=== PATIENT | female | born 1970 | race Caucasian/White ===

== ENCOUNTER 2023-10-07 05:39 | Inpatient (IN) | payer OTHER, SELFPAY ==
[2023-10-07] VITALS (45 sets, daily range): BP systolic 74–187; BP diastolic 57–133; BMI 26.2; BMI 23.7; BMI 24.5
[2023-10-07 02:09] LABS: Glucose - Point of Care 125 mg/dl (70-99)
[2023-10-07] MEDS: ZYPREXA 10 MG IM (02:21)
[2023-10-07] MEDS: VERSED 2 MG IM (02:22)
[2023-10-07 02:44] LABS: % Basophils 0.4 % (0-2); % Immature Granulocytes 0.4 % (0-0.5); % Lymphocytes 14.2 % (20.5-51.1); % Monocytes 6.8 % (1.7-9.3); % Neutrophils 78.2 % (42.2-75.2); Absolute Basophils 0.1 10^3/uL (0-0.2); Absolute Immature Granulocytes 0.1 10^3/uL (0-0.05); Absolute Lymphocytes 2.7 10^3/uL (1.2-3.4); Absolute Monocytes 1.3 10^3/uL (0.1-0.6); Absolute Neutrophils 14.6 10^3/uL (1.4-6.5); Hematocrit 38.2 % (37.0-47.0); Mean Corp Hgb Conc. 36.6 g/dL (33.0-37.0); Mean Corpuscular Hgb 29.1 pg (27.0-31.0); Mean Corpuscular Volume 79.4 fL (81.0-99.0); Mean Platelet Volume 9.5 fL (7.4-10.4); Nucleated Red Blood Cells % 0 %; Platelet Count 421 10^3/uL (130-400); Red Blood Cell Count 4.81 10^6/uL (4.20-5.40); Red Cell Dist. Width 12.2 % (11.5-14.5); White Blood Cell Count 18.7 10^3/uL (4.8-10.8)
--- NOTE | 2023-10-07 02:57 | ED.GENMED ---
History of Present Illness
General
Chief Complaint: Head Injury
Source: patient
Exam Limitations: altered mental status
Time Seen by Provider: 10/07/23 02:05
Travel History
Have you had any contact with someone who has COVID-19?: Unable to Answer
Do you have any symptoms of coronavirus? Fever > 100 degrees, chills, cough, shortness of breath, sore throat, loss of taste or smell, muscle aches, or headache?: Unable to Answer
History of Present Illness
History of Present Illness:
53-year-old female brought in by EMS for [facility] with head injury. She is altered mental status. She had a head strike while in the correctional facility. There are conflicting reports. Initially we were told that
patient was striking her head repeatedly against the cellblock wall. Patient was in custody for approximately 5 hours so long-term history not known. Patient did receive 50 mg of diphenhydramine, 5 mg of haloperidol, and 2 mg of lorazepam after
head strike. Patient was very agitated upon arrival screaming. Blood sugar upon arrival was 125. Patient is very uncooperative. We immediately placed a c-collar on her as the extent of her trauma is unknown. She did have dried blood on her nose
and pupils were dilated. She is not cooperating and unable or unwilling to answer questions. She keeps screaming out incomprehensible words. She received olanzapine and Versed which did not seem to affect her condition. Patient then received
ketamine as she was still thrashing. She still had handcuffs in place and she was straining against them. She was given ketamine to try to prevent her from injuring herself.
Phy Exam
Physical Exam
Physical Exam:
Physical Exam
Vital signs and allergy list reviewed and agreed with.
GENERAL: Alert , in moderate apparent distress, screaming
EYE: pupils equal dilated, extraocular motions intact, no scleral icterus
NECK: Supple, no significant adenopathy. No masses. Trachea midline
ENT: Oropharynx has dried blood, nasopharynx has dried blood. No hemotympanum. Dentition appears intact though she is missing several teeth which appear chronic
CARDIAC: Regular rate and rhythm . No M/R/G
LUNGS: Clear breath sounds bilaterally, no acute respiratory distress, no wheezes/rales/rhonchi
ABDOMEN: Soft, without focal tenderness, no r/g, no cvat. Normal BSx4q
NEUROLOGICAL: Unable to obtain neurological exam at this time
SKIN: Warm and dry, tract dickerson of the arms
MUSCULOSKELETAL: No edema, well perfused. Moves all 4 extremities
PSYCH: No meaningful interaction
General Physical Exam
General Presentation: moderate distress
General age: appears older than age
General Skin: warm and dry
General Habitus: normal and poor hygiene
General Mental: angry, anxious, appears intoxicated and tearful
General Hydration: appears well hydrated
Course
Orders/Labs/Results
Orders:
Orders
10/07/23 02:05
CT Cervical Spine W/o Iv Contr Urgent
Comment:
Reason For Exam: trauma
CT Head W/o Iv Contrast Urgent
Comment:
Reason For Exam: trauma
Bedside Glucose- Treatment ONCE
Cardiac Monitoring- Treatment ONCE
10/07/23 02:07
Electrocardiogram (*1) Stat
Reason for Study: Other
Other Reason for Exam: overdose
EKG- Treatment ONCE
Test Result ONCE
10/07/23 02:10
Olanzapine [Zyprexa] 10 mg IM NOW STA
10/07/23 02:19
Midazolam HCl [Versed] 2 mg .ROUTE .STK-MED ONE
10/07/23 02:22
Midazolam HCl [Versed] 2 mg IM NOW STA
10/07/23 02:39
Acetaminophen Urgent
Alcohol Urgent
Complete Blood Count/With Diff Urgent
Comprehensive Metabolic Panel Urgent
Creatine Phosphokinase Urgent
Comment: ADD ON
Erythrocyte Sed Rate Urgent
Comment: ADD ON
HCG, Serum Qualitative Screen Urgent
Magnesium Urgent
Comment: ADD ON
Phosphorus Urgent
Comment: ADD ON
Salicylate Urgent
10/07/23 02:51
Ketamine Concentrate Injection [Ketamine HCl] 300 mg IM NOW STA
10/07/23 03:26
CT Chest/abd/pel Wo Iv Cont Urgent
Reason For Exam: ams, possible cavity stuffing
10/07/23 04:05
Fentanyl, Urine Urgent
PTT Urgent
Prothrombin Time Urgent
Urinalysis Reflex To Culture Urgent
Date Specimen was Collected: 10/07/23
Time Specimen was Collected: 04:04
Urine Drug Abuse Screen Urgent
Date Specimen was Collected: 10/07/23
Time Specimen was Collected: 04:04
Urine Microscopic Reflex Cult Urgent
Urine Culture Urgent
HARSHIL Source: U
Specimen Description:
Date Specimen was Collected: 10/07/23
Time Specimen was Collected: 04:04
10/07/23 05:14
Admit/Transfer Patient As Directed
Co-Sign Provider:
Level of Care: Inpatient admission
Assign to:: ICU
Physician / Group: Alexandro
Diagnosis: Opioid Withdrawal, Head Trauma
Reason for Hospitalization: Opioid Withdrawal, Head Trauma
Expected length of stay greater than two midnights?: Yes
ELOS- Estimated Length of Stay in days: 3
I certify the patient meets the requirements for IP care: Yes
10/07/23 05:25
Code Status As Directed
Resuscitation Status: Full Code
10/07/23 06:13
Lactic Acid Urgent
10/07/23 06:47
Acetaminophen [Tylenol/Feverall] 650 mg RECTAL Q4HPRN PRN
Dextrose 50%-Water [Dextrose 50% Syringe] 12.5 grams IV [id number] PRN
Glucagon [GlucaGen] 1 mg IM PRN PRN
Haloperidol Lactate [Haldol] 1 mg IV Q4HPRN PRN
HydrALAZINE [Apresoline] 5 mg IV Q6HPRN PRN
Lorazepam [Ativan] 2 mg IV Q2HPRN PRN
10/07/23 06:47
Consult Notification Routine
Specialty to Notify: Stapler Machine
Date consulting provider notified: 10/07/23
Time consulting provider notified: 08:44
Notified:: Provider
Consult Notification Routine
Specialty to Notify: Neurology
Date consulting provider notified: 10/07/23
Time consulting provider notified: 08:44
Notified:: Provider
Consult Notification Routine
Specialty to Notify: Psychiatry
Date consulting provider notified: 10/07/23
Time consulting provider notified: 08:44
Notified:: Provider
NEUROLOGY CONSULT Routine
Consulting Provider: Umberto Hammond
Was physician already notified: No
Reason for consult: AMS, Head injury
PSYCHIATRY CONSULT Routine
Consulting Provider: Stephanie Cedeno
Was physician already notified: No
Reason for consult: Methamphetamine Toxicity / Withdrawal, AMS
Activity As Directed
Activity Level: Bedrest
Bedside Glucose Monitoring As Directed
Frequency: AC&HS
Comment: Change to q6h if pt on TPN, tube feeding or not eating
EKG with chest pain [ECG as needed] As Directed
ECG as needed for:: Chest Pain
I/O [Intake/ Output] As Directed
Frequency: Per unit guidelines
Neurological Checks As Directed
Frequency: q4h
Pneumatic Compression Sleeves As Directed
Type: Knee high
Precautions As Directed
Type of Precautions: Seizure
Aspiration
Vital Signs As Directed
Frequency: Per unit guidelines
O2 Therapy [RESP] Routine
Titrate/Wean O2 to maintain O2 sat greater than (%): 94
Restraints - Violent As Directed
Restraint Type-: Locked-4 point/4 rails
Apply From (date): 10/07/23
Apply from (time): 05:24
Remove (date): 10/07/23
Remove (time): 09:24
DX Deep Vein Thrombosis Video Routine
10/07/23 07:30
Dextrose 5%/Water 1000 ml [D5w] 1,000 ml Sodium Bicarbonate 150 meq IV 125 mls/hr
Insulin Aspart Corrective Low [Novolog Flexpen-Low Resistance] See Protocol SC AC
10/07/23 08:00
Pantoprazole [Protonix IV] 40 mg IV DAILY
10/08/23 04:27
Glycohemoglobin (HgbA1c) IN AM
Magnesium IN AM
10/08/23 06:00
EKG [Electrocardiogram (*1)] IN AM
Reason for Study: Chest Pain
Abnormal Lab Results
10/07/23 10/07/23 10/07/23
02:07 02:39 04:05
WBC 18.7 H 10^3/uL
(4.8-10.8)
MCV 79.4 L fL
(81.0-99.0)
Plt Count 421 H 10^3/uL
(130-400)
Abs Immat Gran (auto) 0.1 H 10^3/uL
(0-0.05)
Absolute Neuts (auto) 14.6 H 10^3/uL
(1.4-6.5)
Absolute Monos (auto) 1.3 H 10^3/uL
(0.1-0.6)
Neutrophils % 78.2 H %
(42.2-75.2)
Lymphocytes % 14.2 L %
(20.5-51.1)
ESR 22 H mm/hour
(0-20)
APTT 20.1 L Sec
(23.4-35.0)
Carbon Dioxide 16 L mmol/L
(22-30)
BUN 18 H mg/dl
(7-17)
Glucose 163 H mg/dl
(70-99)
Calcium 10.5 H mg/dl
(8.4-10.2)
Total Bilirubin 1.8 H mg/dl
(0.2-1.3)
AST 59 H U/L
(14-36)
Alkaline Phosphatase 145 H U/L
(38-126)
Creatine Kinase 678 H U/L
(30-135)
Total Protein 9.3 H g/dl
(6.3-8.2)
Albumin 5.1 H g/dl
(3.5-5.0)
Urine Ketones 1+ A
(Negative)
Ur Occult Blood Reflex 1+ A
(Negative)
Leukocyte Esterase Rfl 1+ A
(Negative)
Urine RBC 3-6 A /HPF
(0-2)
Urine WBC (Reflex) 11-15 A /HPF
(0-5)
Urine Bacteria (Reflex) Moderate A
(Negative)
Urine Glucose 1+ A
(Negative)
Salicylates < 1.0 L mg/dl
(2.0-20.0)
Ur Buprenorphine Positive H
(Negative)
Urine Fentanyl Screen Positive H
(Negative)
Acetaminophen < 10 L ug/ml
(10-30)
Ur Amphetamines Screen Positive H
(Negative)
U Methamphetamines Scrn Positive H
(Negative)
U Benzodiazepines Scrn Positive H
(Negative)
POC Glucose 125 H mg/dl
(70-99)
10/07/23 02:39
10/07/23 02:39
Vital Signs
Initial and Last Documented VS:
Initial Vital Signs
Pulse Resp Pulse Ox
134 36 96
10/07/23 02:07 10/07/23 02:07 10/07/23 02:07
Last Documented Vital Signs
Temp Pulse Resp BP Pulse Ox
100.1 F 107 18 162/79 94
10/08/23 19:00 10/08/23 19:00 10/08/23 19:00 10/08/23 19:00 10/08/23 19:00
*Critical Care Note
Total Time (30-74mins, 75-104mins- exclusive of procedures): 55 (Critical care statement: A total of 55 minutes of critical care time was provided for this patient. This time is separate from time utilized to perform the aforementioned documented
procedures. Aggregate critical care time includes only time during which I was engaged in work directl)
Update Note
Update Note:
10/07/2023 0300 AM: When medics called in with report, I tried to defer them to a trauma center since patient had a head strike and mental status was not normal. The communicated was terminated prematurely and patient arrived here at our nontrauma
center.
CT HEAD WITHOUT CONTRAST
CT CERVICAL SPINE WITHOUT CONTRAST
CT CHEST WITHOUT CONTRAST
CT ABDOMEN PELVIS WITHOUT CONTRAST
COMPARISON: None
IMPRESSION:
CT HEAD:
No acute intracranial hemorrhage. No evidence of acute infarct.
No calvarial fracture.
Ventricles are normal without hydrocephalus.
There is scattered paranasal sinus mucosal thickening.
CT CERVICAL SPINE:
No acute fracture.
Straightening of the cervical spine. Mild anterolisthesis C3 on C4 that appears degenerative due to moderate to severe facet arthrosis in the upper cervical spine.
Moderate degenerative disc disease throughout the cervical spine without definite high-grade osseous canal stenosis.
Small left-sided internal laryngocele.
CT CHEST:
Study is limited due to motion artifact.
No traumatic injury in the chest.
Lungs are clear. No lung contusion or pneumothorax.
No rib fracture or thoracic spine fracture.
Soft tissue nodule inner right breast measuring 12 mm. Correlate with any mammogram. If none available, breast clinic referral recommended
CT ABDOMEN PELVIS:
Study is limited due to motion artifact.
There is no definite foreign body in the stomach, rectum, or vagina. However evaluation of the stomach is limited due to motion artifact.
No traumatic injury in the abdomen/pelvis.
Rotational anomaly of the right kidney. Prominence of the right ureter is noted with possible 2 mm stone in the right ureter on coronal image 44 although this may actually be and ovarian vein phlebolith if there is no corresponding flank pain.
Moderate stool in the colon without signs of obstruction or colitis. Normal appendix, partially obscured by motion artifact.
No free air or free fluid.
No definite lumbar spine or pelvic fracture.
10/07/2023 0448 AM: Patient resting comfortably, CT scan reviewed. Patient to be admitted for altered mental status.
ED Attending Note
-
Portions of this chart may have been created with voice recognition software.� Occasional wrong word or��sound alike� substitutions may have occurred due to the inherent limitations of voice recognition software.
Discharge Plan
Departure
Patient Disposition: Admit
Date of Disposition: 10/07/23
Time of Disposition: 04:54
Admit to: Telemetry
Presentation/result/management discussed w/ accepting MD/DO: Hospitalist
Discharge Problem:
Altered mental status, Head injury, Epistaxis due to trauma, Drug abuse, Health examination of prisoner
Interventions
Interventions:
*Risk Screen - Suicide Last Done: 10/07/23 02:07
*General Assessment Last Done: 10/07/23 02:07
*Neglect/Abuse Screening Last Done: 10/07/23 02:07
*Nursing Disposition Last Done: 10/07/23 06:42
ED- Neurological Assessment Last Done: 10/07/23 02:31
ED-Skin Assessment Last Done: 10/07/23 02:14
Discharge Date and Time
Discharge Date/Time: 10/07/23 06:42
[2023-10-07] MEDS: KETAMINE HCL 300 MG IM (03:02)
[2023-10-07 03:08] LABS: HCG, Serum Qualitative Screen Negative
[2023-10-07 03:24] LABS: ALT (SGPT) 32 U/L (0-35); AST (SGOT) 59 U/L (14-36); Acetaminophen < 10 ug/ml (10-30); Albumin 5.1 g/dl (3.5-5.0); Alcohol None Detected; Alkaline Phosphatase 145 U/L (38-126); Blood Urea Nitrogen 18 mg/dl (7-17); Calcium 10.5 mg/dl (8.4-10.2); Carbon Dioxide 16 mmol/L (22-30); Chloride 106 mmol/L (98-107); Estimated Creatinine Clearance 67 ml/min; Glucose 163 mg/dl (70-99); Potassium 4.3 mmol/L (3.5-5.1); Salicylate < 1.0 mg/dl (2.0-20.0); Sodium 140 mmol/L (135-145); Total Bilirubin 1.8 mg/dl (0.2-1.3); Total Protein 9.3 g/dl (6.3-8.2); eGFR > 60.00
[2023-10-07 04:30] LABS: Urine Albumin Trace (Neg - Trace); Urine Bilirubin Negative (Negative); Urine Character Clear (Clear); Urine Color Yellow; Urine Glucose 1+ (Negative); Urine Ketone 1+ (Negative); Urine Leukocyte 1+ (Negative); Urine Nitrite Negative (Negative); Urine Occult Blood 1+ (Negative); Urine Urobilinogen Negative (Neg - 1+)
[2023-10-07 04:40] LABS: INR 1.01; PT 13.3 Sec (11.4-14.6)
[2023-10-07 04:52] LABS: Urine Bacteria Moderate (Negative); Urine Hyaline Cast 0-2 /LPF (0-2); Urine Mucus Moderate; Urine Squamous Cell >30 /LPF (Few)
[2023-10-07 04:59] LABS: Amphetamines Positive (Negative); Barbiturates Negative (Negative); Benzodiazepines Positive (Negative); Buprenorphine Positive (Negative); Cocaine Negative (Negative); Marijuana Negative (Negative); Methadone Negative (Negative); Methamphetamines Positive (Negative); Opiates Negative (Negative); Phencyclidine Negative (Negative); Tricyclic Antidepressants Negative (Negative)
[2023-10-07 05:09] LABS: APTT 20.1 Sec (23.4-35.0)
[2023-10-07 05:22] LABS: Fentanyl, Urine Positive (Negative)
--- NOTE | 2023-10-07 05:31 | HPS.HSE ---
Family Physician
-
Family Physician: * NONE
Chief Complaint
-
Agitation
History of Present Illness
Patient is a 53y F with unknown PMH who presents to ED from nursing home for evaluation of altered mental status and reported head trauma. History is obtained from ED staff and nursing home staff at the bedside.
Patient mumbled at times and shouts out nonsensically, but does not answer questions or follow commands.
Patient was incarcerated on 10/06/23. Some time after incarceration, she was reportedly noted to become increasingly agitated. She was on medications at the nursing home consistent with opioid addiction. This evening, patient was witnessed to be
striking her own head against the wall. She received multiple sedating meds at the nursing home without significant improvement and was brought to our ED for further evaluation and treatment.
At the time of my examination, patient is in 4 point restraints and is intermittently agitated / thrashing with mumbled speech.
Medical History
Past Medical History
Past Medical History: Reports Other
Additional Past Medical History:
Unknown
Past Surgical History: Reports Other
Additional Past Surgical History:
Unknown
Social History
Unable to obtain full social history at this time due to: Patient Non-verbal
Family History
Family History: Unable to Obtain
Allergies / Home Medications
Allergies reflects when Allergies were last updated in [facility].
Home Medications with original date entered in [facility]
Allergy/Medication List:
Patient unable to confirm meds.
If medication reconciliation has not been performed, why?: Unresponsive
Review of Systems
-
Unable to obtain full review of systems at this time due to: Patient Non-verbal
Physical Exam
Vital Signs
Vital Signs
Pulse Resp BP Pulse Ox
127 20 187/110 97
10/07/23 04:45 10/07/23 04:45 10/07/23 04:30 10/07/23 04:15
Physical Exam
General: Other (53y F sedated and in 4-point restraints in the ED. Intermittent episodes of thrashing / agitation. Mumbled speech. Does not answer questions / follow commands.)
HEENT: Other (Poor dentition. Evidence of recent bleeding from the nose and mouth. No active bleeding. No visible mucosal / tongue lesions.)
Respiratory: Clear; No Wheezes, Rales or Rhonchi
Cardiac: S1/S2 and Tachycardia; No Murmur
GI: Soft, Non Tender, Non Distended and Normal Bowel Sounds
Musculoskeletal: No Clubbing, No Cyanosis and No Edema
Neuro: Other (Moving all 4 extremities spontaneously.)
Laboratory Results
-
10/07/23 02:39
10/07/23 02:39
Laboratory Results
PT 13.3 Sec (11.4-14.6) 10/07/23 04:05
INR 1.01 10/07/23 04:05
APTT 20.1 Sec (23.4-35.0) L 10/07/23 04:05
Total Bilirubin 1.8 mg/dl (0.2-1.3) H 10/07/23 02:39
AST 59 U/L (14-36) H 10/07/23 02:39
ALT 32 U/L (0-35) 10/07/23 02:39
Alkaline Phosphatase 145 U/L (38-126) H 10/07/23 02:39
Impression/Plan
-
A/P: Patient is a 53y F with unknown PMH who presents to ED from nursing home for evaluation of altered mental status and head trauma.
Altered Mental Status / Agitation
Acute TME
Anion Gap Metabolic Acidosis
Leukocytosis - Likely Stress Response
- Admit to ICU for further evaluation and treatment.
- UDS positive for amphetamines / methamphetamines (as well as BZDs and buprenorphine which she was receiving at the nursing home).
- No fentanyl or opioids noted.
- Presentation / exam consistent with methamphetamine toxicity.
- Continue management of agitation with aggressive BZDs +/- antipsychotic medications as needed.
- Maintain restraints for now, but would attempt to eliminate these as soon as able / when agitation is better controlled.
- IVF support with supplemental bicarb.
- BP control with hydralazine. Avoid beta-blockers acutely.
- Collections Curator evaluation.
- Psychiatry evaluation.
- Follow for clinical improvement.
Head Trauma - Witnessed
- Patient with hematoma over the R > L frontal areas.
- Bleeding from mouth / nose on arrival - no longer active.
- See ED record regarding circumstances of initial presentation.
- Imaging done here in the ED is without any evidence of intracranial bleeding, factures or other significant trauma.
- Agitation / altered mental status preceded (and was the cause of) the self-inflicted trauma.
- Monitor for any evident changes in neurologic status.
- Repeat CT later this AM to assess for any short interval changes.
- Neurology evaluation.
Hypertension
- Likely in large part secondary to amphetamine toxicity / agitation.
- Follow for improvement with adequate sedation.
- IV hydralazine PRN for very high BPs.
DVT Prophylaxis: SCDs
Code Status: Full
[2023-10-07] MEDS: HALDOL 1 MG IV (07:04)
[2023-10-07] MEDS: ATIVAN 2 MG IV (07:05)
[2023-10-07] MEDS: SODIUM BICARBONATE 1150 MEQ IV (08:07)
[2023-10-07] MEDS: PROTONIX IV 40 MG IV (08:08)
[2023-10-07] MEDS: NSS (PRESERVATIVE FREE) 10 ML IV (08:08)
[2023-10-07] MEDS: HALDOL 2 MG IV (08:25)
[2023-10-07] MEDS: PRECEDEX 100 IV ×2 (08:25→13:06)
[2023-10-07 08:49] LABS: Creatine Phosphokinase 678 U/L (30-135); Phosphorus 4.2 mg/dl (2.5-4.5)
[2023-10-07 11:11] LABS: Erythrocyte Sed Rate 22 mm/hour (0-20)
--- NOTE | 2023-10-07 11:11 | CON.INTV ---
Consultation
Consultation Request
Date/Time Consultation Requested: 10/07/2023
Date/Time Consultation Performed: 10/07/2023
Requesting Provider: Dr. Shrestha
Performing Provider: Dr. Juan Miguel Izquierdo
Reason for Consultation: Acute change in mental status/severe agitated delirium
Medical History
-
History of Present Illness:
53-year-old woman with unknown past medical history she was brought into the emergency room from the local [facility] for altered mental status. History obtained from records and staff as the patient is currently unable to provide any history.
Patient initially was incarcerated on 10/06/2023. She has been increasingly agitated. She was placed on some medications at the senior care for opiate addiction. Patient was observed for striking her head with the wall. She was given sedating
medication at the senior care without success. She was brought into the emergency room for evaluation.
Patient was found with altered mental status, combative, not following commands. Required multiple dose of antipsychotics and sedatives without success. Subsequently transferred to the critical care unit for further evaluation and care.
Continues to be intermittently agitated, not following commands, unable to provide history. Delirious. Currently on 4 point restraints.
Past Medical History
Past Medical History: Other (Unable to obtain)
Social History
Tobacco: Other (Unable to obtain due to agitation and poor mental status)
Family History
Family History: Unable to Obtain (Agitation, poor mental status)
Allergies / Home Medications
Allergies
Allergy/AdvReac Type Severity Reaction Status Date / Time
No Known Allergies Allergy Unverified 10/07/23 03:01
Home Medications
Medication Instructions Recorded Confirmed Last Taken Type
buprenorphine HCl 2 mg sublingual 2 mg sublingual DAILY 10/07/23 10/07/23 Unknown History
tablet
buprenorphine HCl 2 mg sublingual 4 mg sublingual DAILY 10/07/23 10/07/23 Unknown History
tablet
buprenorphine HCl 8 mg sublingual 8 mg sublingual DAILY 10/07/23 10/07/23 Unknown History
tablet
clonazepam 0.5 mg disintegrating 0.5 mg PO DAILY 10/07/23 10/07/23 Unknown History
tablet
clonazepam 1 mg tablet 1 mg PO BID 10/07/23 10/07/23 Unknown History
clonazepam 2 mg disintegrating 2 mg PO BID 10/07/23 10/07/23 Unknown History
tablet
clonidine HCl 0.1 mg tablet 0.1 mg PO BID 10/07/23 10/07/23 Unknown History
clonidine HCl 0.1 mg tablet 0.1 mg PO TID 10/07/23 10/07/23 Unknown History
diphenhydramine HCl 50 mg/mL 50 mg IM ONCE 10/07/23 10/07/23 10/07/23 History
injection syringe 0130
folic acid 1 mg tablet 1 mg PO DAILY 10/07/23 10/07/23 Unknown History
haloperidol lactate 5 mg/mL 5 mg ONCE 10/07/23 10/07/23 10/07/23 History
injection syringe 0130
loperamide 2 mg tablet 2 mg PO TID PRN DIARRHEA 10/07/23 10/07/23 Unknown History
lorazepam 2 mg tablet 2 mg PO ONCE 10/07/23 10/07/23 10/07/23 History
0130
magnesium oxide 400 mg PO DAILY 10/07/23 10/07/23 Unknown History
multivitamin 1 tab PO DAILY 10/07/23 10/07/23 Unknown History
ondansetron 4 mg disintegrating 4 mg PO Q8H PRN N/V 10/07/23 10/07/23 Unknown History
tablet
thiamine HCl (vitamin B1) 100 mg 100 mg PO DAILY 10/07/23 10/07/23 Unknown History
tablet (Vitamin B-1)
Review of Systems
-
Unable to Obtain full review of systems at this time due to: Other (Agitated, poor mental status)
Vitals / Labs / Diagnostic Testing
Vital Signs
Temp Pulse Resp BP Pulse Ox
98.6 F 77 15 84/67 97
10/07/23 07:30 10/07/23 10:43 10/07/23 10:43 10/07/23 10:43 10/07/23 10:46
Lab Data
10/07/23 02:39
10/07/23 02:39
Laboratory Results
10/07/23
04:05
PT 13.3
INR 1.01
APTT 20.1 L
Diagnostic Testing:
Physical Exam
-
HEENT: Normocephalic
Cardiovascular: S1/S2
Respiratory: Clear
GI: Soft and Non Distended
Neurology: Other (Intermittently agitated, combative, not following commands. Moving 4 extremities.)
Skin: Other (Multiple skin lesions noted.) and Other (Frontal bruising noted.)
Assessment
-
Agitated delirium: Toxic metabolic encephalopathy
Likely methamphetamine toxicity
UDS positive for amphetamines and methamphetamines
Positive for fentanyl as well
Positive for benzos (patient received in the emergency room)
Alcohol negative
Positive buprenorphine
Facial trauma: Self-inflicted
CT chest with no acute abnormality
Anion gap metabolic acidosis-likely due to agitation
CT abdomen pelvis/chest 10/07/2023: Lungs are mostly clear. Abdomen pelvis without acute abnormality
Leukocytosis: Possibly stress reaction-patient afebrile
Assessment and plan:
Critically ill with agitated delirium: Necessitating chemical restriction.
Has received multiple doses of benzodiazepines IV, Haldol IV without good response.
Continues to be combative on four-port restraints.
Precedex drip will be started, continue to monitor vital signs closely as well as mental status
Haldol IV 2 mg now were given as well.
Maintain aspiration precautions, Head of the bed elevation. NPO.
-
Continue Ativan as needed
Eventual psychiatry evaluation
-
If there is depressed mental status and unable to protect airway may need to proceed with intubation.
Currently coughing and yelling on occasion. Protecting airway.
-
Continue hemodynamic monitoring.
Follow electrolytes, bicarbonate drip has been given.
Repeat BMP later today. If acidosis better than will transition to half-normal with potassium.
Continue to monitor electrolytes daily
-
Follow leukocytosis, urinalysis is abnormal.
Unclear if is contaminant
Ceftriaxone started, if culture negative will consider discontinuation of antibiotics.
-
DVT prophylaxis with Lovenox
-
Case discussed with primary team
-
Critical care statement: A total of 31 minutes of critical care time was provided for this patient today. This includes management of unstable vital signs, evaluation of the patient at bedside, reviewing the patient's pertinent medical records
including ventilator settings, arterial blood gases, radiographs, microbiology, laboratory evaluations and discussion with primary team, critical care nursing, and respiratory therapy.
[2023-10-07] MEDS: ROCEPHIN 1000 MG IV (11:14)
[2023-10-07] MEDS: STERILE WATER FOR INJECTION 10 ML IV (11:15)
--- NOTE | 2023-10-07 11:15 | W.PN.HOSP.TC ---
Addendum entered and electronically signed by Gurdeep Shrestha MD 10/07/23 13:23:
Correction: Nonbillable note
Original Note:
Today's Communication/Plan
-
Monitor vital signs and see plan
Continue with Precedex
Restraints
Start ceftriaxone
Follow urine culture
Monitor leukocytosis
Assessment / Plan
Assessment / Plan
General: No acute distress, sedated, in restraints
HEENT: Other (Poor dentition.� Evidence of recent bleeding from the nose and mouth.� No active bleeding.)
Respiratory: Clear; No Wheezes, Rales or Rhonchi
Cardiac: S1/S2 and Tachycardia; No Murmur
GI: Soft, Non Tender, Non Distended and Normal Bowel Sounds
Musculoskeletal: No Clubbing, No Cyanosis and No Edema
Neuro:sedated
Altered Mental Status / Agitation
Acute TME
Anion Gap Metabolic Acidosis
Leukocytosis
nowin ICU; on precedex
�- UDS positive for amphetamines / methamphetamines (as well as BZDs and buprenorphine which she was receiving at the [facility] living).
�- Presentation / exam on admission consistent with methamphetamine toxicity.
cw restraints
�- IVF support with supplemental bicarb.
�- BP control with hydralazine.� Avoid beta-blockers acutely.
�- Hi Lo Driver following
�- Psychiatry evaluation.
�- Follow for clinical improvement.
Mild LFT elevation
Monitor
Suspect urinary tract infection
Urine culture pending
Start ceftriaxone
Head Trauma - Witnessed
�- Patient with hematoma over the R > L frontal areas.
�- Bleeding from mouth / nose on arrival - no longer active.
�- See ED record regarding circumstances of initial presentation.
�- Imaging done here in the ED is without any evidence of intracranial bleeding, factures or other significant trauma.
�- Agitation / altered mental status preceded (and was the cause of) the self-inflicted trauma.
�- Monitor for any evident changes in neurologic status.
�-Neurology following
�-CT cervical spine consistent with degenerative changes, no signs of fracture
CT chest/abdomen/pelvis, no radiopaque foreign body identified. 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 Post recent right gluteal intramuscular injection
Hypertension
�- Likely in large part secondary to amphetamine toxicity / agitation.
�- Follow for improvement with adequate sedation.
�- IV hydralazine PRN for very high BPs.
DVT Prophylaxis:� SCDs
Code Status:� Full
I spent a total of 52 minutes with the patient or on the floor. More than 50% of this time involved counseling and coordination of care.
Anticipated Discharge: > 48 hours
Subjective/Interval History
-
Date of Service: October 07, 2023
sedated
Objective Data
-
Labs:
Laboratory Results
10/07/23 10/07/23
02:39 04:05
WBC 18.7 H
Hgb 14.0
Hct 38.2
Plt Count 421 H
PT 13.3
INR 1.01
APTT 20.1 L
Sodium 140
Potassium 4.3
Chloride 106
Carbon Dioxide 16 L
BUN 18 H
Creatinine 1.0
Glucose 163 H
Calcium 10.5 H
Total Bilirubin 1.8 H
AST 59 H
ALT 32
Alkaline Phosphatase 145 H
Vital Signs:
Vital Signs
Temp Pulse Resp BP Pulse Ox
98.6 F 77 15 84/67 97
10/07/23 07:30 10/07/23 10:43 10/07/23 10:43 10/07/23 10:43 10/07/23 10:46
I&O
10/06/23 10/07/23 10/08/23
06:59 06:59 06:59
Intake Total 282.9 / 282.9
Output Total 500 / 500
Balance -217.1 / -217.1
--- NOTE | 2023-10-07 11:19 | W.PN.UPDATE ---
Update Note
Progress Note Update
this chart was reviewed and i spoke to nursing. consult could not be done as i was unable to arouse this patient at all to speak with me . will return in the am and try again. noted patient w long hx meth abuse. she has been sedated with a number
of agents including zyprexa haldol benadryl midazolam and is now on precedex and in restraints. hopefully she will be able to engage when the acute period of intoxication passes..
--- NOTE | 2023-10-07 11:41 | CON.NEURO4 ---
Addendum entered and electronically signed by Umberto Hammond MD 10/07/23 13:06:
Studies reviewed.
I have personally examined the patient. I reviewed and agree with the SKIP MINER's Note.
My addenda:
Not alert, no acute distress. Maintains eyes half-open.
Speech: moaning only
Follows no requests. No tremor.
Extra-ocular movements grossly intact.
Facial movements full and symmetric. Hearing intact to normal conversational volume.
Normal UE movements bilaterally.
Neck: full ROM.
Chest: no dyspnea
Heart: no JVD
Ext: (-) Clubbing, (-) Cyanosis, (-) Edema
IMPRESSIONS/RECOMMENDATIONS:
Abrupt onset of self- abuse and trauma
attempt to reduce sedation when possible
re-check CT head if no improvement in mentation 24 hours off of sedation
check blood work for additional etiologies
Will continue to follow as needed.
Original Note:
Documented by User: Jesenia Anguiano NP 10/07/23 12:08
Consultation - Neurology 4
-
CONSULTING PHYSICIAN: Umberto Hammond MD
REFERRING PHYSICIAN: Hospitalists/Dr. Mc
DICTATED BY: ADOLFO Paniagua
DATE/TIME OF REQUEST: 10/06/23
DATE/TIME OF CONSULTATION: 10/07/23
Reason for Consultation: AMS, head injury
History of Present Illness:
This is a 53-year-old female with a PMH of drug abuse who has presented to the hospital from [facility] with report of altered mental status and head injury. Patient was incarcerated yesterday (10/06/23). Five hours in to
her incarceration she became extremely agitated and started striking her head against a wall, prompting staff to administer IM Lorazepam, Benadryl, and Haldol which did not significantly improve her agitation, prompting them to bring her to the ER
for evaluation. CT head and cervical spine are negative for any acute findings. Urine drug screen +amphetamines, benzos, fentanyl, and buprenorphine. Patient is currently in the ICU on a Precedex drip with ongoing intermittent agitation/thrashing
and nonsensical mumbling. She is unable to provide any answers to questions.
Past Medical History: Unknown.
Surgical History: Unknown.
Family History: Unknown.
Social History: Methamphetamine abuse.
Allergies: No known allergies.
Home Medications: See below.
Review of Symptoms:
Per the HPI. I am unable to obtain a complete review of systems�because of patient's inability to provide history.
Physical Exam:
The patient is obtunded, restless, and restrained, afebrile, abdomen is nondistended, breathing is unlabored, skin is warm and dry, no edema.
Neurologic Examination:
The patient is sedated on IV Precedex and other IV push medication. She is obtunded, moans only. Doesn't follow any commands or respond to any questions. There is no aphasia or dysarthria. On cranial nerve assessment, pupils are 1 mm bilateral,
round and reactive to light and accommodation. JAYSON visual godfrey or EOMS, gaze is midline. There is no facial asymmetry at rest. JAYSON hearing. JAYSON tongue. Moves all extremities spontaneously, localizes BUE and withdraws BLE to pain. JAYSON drift. No
involuntary movement noted. Deep tendon reflexes are 2+ bilateral upper and lower extremities.Babinski is mildly positive on the right. JAYSON sensation, DBS, and coordination.
Lab Results: See below.
Neuro Imaging:
1. CT Head 10/07/23: No acute intracranial abnormality.
2. CT Cervical Spine 10/07/23: No acute fracture or malalignment cervical spine. Multilevel moderate to advanced degenerative changes as described.
Differentials for the patient's presentation include:
1. Acute agitation in the setting of substance withdraw and incarceration.
2. Patient on sedation.
3. No evidence of any head/neck trauma from hitting head.
4. Low concern for acute neurological condition leading to agitation.
Recommendations:
-Supportive care.
-If no improvement in mental status in the next several days consider MRI brain imaging.
-Urine culture pending.
-DVT prophylaxis.
Discussed patient care with: Dr. Hammond, nursing staff
Vital Signs and Labs
-
Vital Signs and Labs:
Vital Signs
Temp Pulse Resp BP Pulse Ox
98.6 F 77 15 84/67 97
10/07/23 11:59 10/07/23 10:43 10/07/23 10:43 10/07/23 10:43 10/07/23 10:46
Lab Results
10/07/23 02:39
PT 13.3 Sec (11.4-14.6) 10/07/23 04:05
INR 1.01 10/07/23 04:05
APTT 20.1 Sec (23.4-35.0) L 10/07/23 04:05
Sodium 140 mmol/L (135-145) 10/07/23 02:39
Potassium 4.3 mmol/L (3.5-5.1) 10/07/23 02:39
BUN 18 mg/dl (7-17) H 10/07/23 02:39
Glucose 163 mg/dl (70-99) H 10/07/23 02:39
Calcium 10.5 mg/dl (8.4-10.2) H 10/07/23 02:39
Phosphorus 4.2 mg/dl (2.5-4.5) 10/07/23 02:39
Vitamin B12 Cancelled 10/07/23 02:39
Ur Buprenorphine Positive (Negative) H 10/07/23 04:05
Medications
-
Active Medications
Generic Name Dose Route Start Last Admin
Trade Name Freq PRN Reason Stop Dose Admin
Acetaminophen 650 mg 10/07/23 06:47
Acetaminophen 650 Mg Rectal Suppository RECTAL 11/04/23 06:46
Q4HPRN PRN
mild pain/RODRIGUEZ/temp> 100.4F
Ceftriaxone Sodium 1,000 mg 10/07/23 10:00 10/07/23 11:14
Ceftriaxone 1000 Mg / 10 Ml Vial IV 1,000 mg
Q24H VARUN Administration
Dextrose 12.5 grams 10/07/23 06:47
Dextrose 50% (0.5 Grams/Ml) 50 Ml Syringe IV 11/04/23 06:46
[id number] PRN
hypoglycemia
Protocol
Enoxaparin Sodium 40 mg 10/07/23 18:00
Enoxaparin Sodium 40 Mg/0.4 Ml Syringe SC 11/04/23 17:59
QPM VARUN
Glucagon 1 mg 10/07/23 06:47
Glucagon 1 Mg Vial IM 11/04/23 06:46
PRN PRN
hypoglycemia
Protocol
Haloperidol Lactate 1 mg 10/07/23 06:47 10/07/23 07:04
Haloperidol 5 Mg/Ml 1 Ml Vial IV 11/04/23 06:46 1 mg
Q4HPRN PRN Administration
Agitation
Hydralazine HCl 5 mg 10/07/23 06:47
Hydralazine 20 Mg/Ml Vial IV 11/04/23 06:46
Q6HPRN PRN
SBP > 180
Sodium Bicarbonate 150 meq/ 1,150 mls @ 125 mls/hr 10/07/23 07:30 10/07/23 08:07
Dextrose IV 10/07/23 16:41 1,150 mls
.Q9H12M VARUN Administration
Dexmedetomidine HCl 400 mcg in 100 mls @ 0 mls/hr 10/07/23 08:30 10/07/23 08:25
Precedex IV 100 mls
PER PROTOCOL VARUN Administration
Protocol
Per Protocol
Insulin Aspart 0 units 10/07/23 12:00 10/07/23 11:52
Insulin Aspart Low Resistance 300 Units/3 Ml Pen.Injctr SC 11/04/23 11:59 Not Given
Q6 VARUN
Protocol
Lorazepam 2 mg 10/07/23 06:47 10/07/23 07:05
Lorazepam 2 Mg/Ml Vial IV 11/04/23 06:46 2 mg
Q2HPRN PRN Administration
Agitation
Pantoprazole Sodium 40 mg 10/07/23 08:00 10/07/23 08:08
Pantoprazole Sodium 40 Mg/10 Ml Vial IV 11/04/23 07:59 40 mg
DAILY VARUN Administration
Sodium Chloride 0 flush 10/07/23 07:00
Sodium Chloride 0.9% (Flush) Syringe IV 11/04/23 06:59
PER PROTOCOL VARUN
Sodium Chloride 1 ml 10/07/23 06:58
Nss (Pf) 10 Ml Vial For Ativan 2 Mg Dose IV 11/04/23 06:57
Q2HPRN PRN
IV LORAZEPAM DILUTION
Sodium Chloride 10 ml 10/07/23 08:00 10/07/23 08:08
Sodium Chloride 0.9% (Preservative Free) 10 Ml Vial IV 11/04/23 07:59 10 ml
DAILY VARUN Administration
Sterile Water 10 ml 10/07/23 10:00 10/07/23 11:15
Sterile Water For Injection 10 Ml Vial IV 11/04/23 09:59 10 ml
Q24H VARUN Administration
Home Medications
Medication Instructions Recorded
buprenorphine HCl 2 mg sublingual 2 mg sublingual DAILY 10/07/23
tablet
buprenorphine HCl 2 mg sublingual 4 mg sublingual DAILY 10/07/23
tablet
buprenorphine HCl 8 mg sublingual 8 mg sublingual DAILY 10/07/23
tablet
clonazepam 0.5 mg disintegrating 0.5 mg PO DAILY 10/07/23
tablet
clonazepam 1 mg tablet 1 mg PO BID 10/07/23
clonazepam 2 mg disintegrating 2 mg PO BID 10/07/23
tablet
clonidine HCl 0.1 mg tablet 0.1 mg PO BID 10/07/23
clonidine HCl 0.1 mg tablet 0.1 mg PO TID 10/07/23
diphenhydramine HCl 50 mg/mL 50 mg IM ONCE 10/07/23
injection syringe
folic acid 1 mg tablet 1 mg PO DAILY 10/07/23
haloperidol lactate 5 mg/mL 5 mg ONCE 10/07/23
injection syringe
loperamide 2 mg tablet 2 mg PO TID PRN DIARRHEA 10/07/23
lorazepam 2 mg tablet 2 mg PO ONCE 10/07/23
magnesium oxide 400 mg PO DAILY 10/07/23
multivitamin 1 tab PO DAILY 10/07/23
ondansetron 4 mg disintegrating 4 mg PO Q8H PRN N/V 10/07/23
tablet
thiamine HCl (vitamin B1) 100 mg 100 mg PO DAILY 10/07/23
tablet (Vitamin B-1)

Documented by User: Umberto Hammond MD 10/07/23 12:18
Consultation - Neurology 4
-
CONSULTING PHYSICIAN: Umberto Hammond MD
REFERRING PHYSICIAN: Hospitalists/Dr. Mc
DICTATED BY: ADOLFO Paniagua
DATE/TIME OF REQUEST: 10/06/23
DATE/TIME OF CONSULTATION: 10/07/23
Reason for Consultation: AMS, head injury
History of Present Illness:
This is a 53-year-old female with a PMH of drug abuse who has presented to the hospital from [facility] with report of altered mental status and head injury. Patient was incarcerated yesterday (10/06/23). Five hours in to
her incarceration she became extremely agitated and started striking her head against a wall, prompting staff to administer IM Lorazepam, Benadryl, and Haldol which did not significantly improve her agitation, prompting them to bring her to the ER
for evaluation. CT head and cervical spine are negative for any acute findings. Urine drug screen +amphetamines, benzos, fentanyl, and buprenorphine. Patient is currently in the ICU on a Precedex drip with ongoing intermittent agitation/thrashing
and nonsensical mumbling. She is unable to provide any answers to questions.
Past Medical History: Unknown.
Surgical History: Unknown.
Family History: Unknown.
Social History: Methamphetamine abuse.
Allergies: No known allergies.
Home Medications: See below.
Review of Symptoms:
Per the HPI. I am unable to obtain a complete review of systems�because of patient's inability to provide history.
Physical Exam:
The patient is obtunded, restless, and restrained, afebrile, abdomen is nondistended, breathing is unlabored, skin is warm and dry, no edema.
Neurologic Examination:
The patient is sedated on IV Precedex and other IV push medication. She is obtunded, moans only. Doesn't follow any commands or respond to any questions. There is no aphasia or dysarthria. On cranial nerve assessment, pupils are 1 mm bilateral,
round and reactive to light and accommodation. JAYSON visual godfrey or EOMS, gaze is midline. There is no facial asymmetry at rest. JAYSON hearing. JAYSON tongue. Moves all extremities spontaneously, localizes BUE and withdraws BLE to pain. JAYSON drift. No
involuntary movement noted. Deep tendon reflexes are 2+ bilateral upper and lower extremities.Babinski is mildly positive on the right. JAYSON sensation, DBS, and coordination.
Lab Results: See below.
Neuro Imaging:
1. CT Head 10/07/23: No acute intracranial abnormality.
2. CT Cervical Spine 10/07/23: No acute fracture or malalignment cervical spine. Multilevel moderate to advanced degenerative changes as described.
Differentials for the patient's presentation include:
1. Acute agitation in the setting of substance withdraw and incarceration.
2. Patient on sedation.
3. No evidence of any head/neck trauma from hitting head.
4. Low concern for acute neurological condition leading to agitation.
Recommendations:
-Supportive care.
-If no improvement in mental status in the next several days consider MRI brain imaging.
-Urine culture pending.
-DVT prophylaxis.
Discussed patient care with: Dr. Hammond, nursing staff
--- NOTE | 2023-10-07 11:43 | PTCARENOTE ---
Received pt this am at change of shift, R hand iv was wrapped and fingers purple upon arrival. Wrap removed and iv site was noted to not be in vessel. Pt was thrashing/restless in bed. Able to give name, but speech otherwise garbled and
unintelligable. Unable to redirect, not following commands. Pt required to physically be held down by 6 people, including 2 [facility] guards, upon arrival to obtain peripheral iv, first placed r hand, after multiple unsuccessful attempts, second
placed in r foot. Pt given chg bath upon arrival, once settled mouth care completed and given addition of precedex as charted after pt remained agitated/restless after haldol and ativan given as charted, perkins also placed without difficulty given
bladder scan for over 400ml. Pt maintained in 4 point soft restraints at present. Nurse from [facility] called for update. Pt evaluated by neurology at bedside who deemed repeat ct head not necassary. Dr Cedeno will be in tomorrow as pt sedated
currently and unable to be interviewed for assessment. Otherwise please refer to flowsheets.
[2023-10-07 12:02] LABS: Glucose - Point of Care 128 mg/dl (70-99)
[2023-10-07] MEDS: LR 500 ML IV (12:23)
[2023-10-07 12:26] LABS: TSH Reflex To Free T4 1.44 uIU/ml (0.47-4.68)
--- NOTE | 2023-10-07 12:30 | PTCARENOTE ---
Pt agitated with care or any stimulation. BP has dropped despite lowering precedex as charted. Dr Izquierdo aware, fluid bolus currently infusing, pt continues to make urine despite low bp maps have been above 60. Otherwise assessment unchanged.
[2023-10-07 13:01] LABS: Folate 14.6 ng/ml (2.76-20); Vitamin B12 447 pg/ml (239-931)
--- NOTE | 2023-10-07 13:49 | CM ---
CM following re: discharge planning.
Discussed in Rounds, reviewed pt's chart, met with pt and two guards at bedside.
Pt is a 53 year old female, admitted with primary dx of opioid withdrawal.
Pt is admitted from [facility] and per guard, pt wll return back to [facility] when medically stable.
[facility] nursing report: [phone]
Discharge instructions fax: [phone]
D/C plan: return back to [facility]. Guards to transport.
--- NOTE | 2023-10-07 13:57 | PTCARENOTE ---
No change in bp after fluid bolus. Dr Izquierdo aware, also, troponin elevated. Dr Izquierdo aware. Orders pending.
--- NOTE | 2023-10-07 14:02 | W.PN.UPDATE ---
Update Note
Progress Note Update
Elevated troponin noted.
EKG with nonspecific changes
Patient unable to regarding chest pain.
Will obtain echocardiogram
Will consult cardiology.
Suspect non-NH troponin increase.
--- NOTE | 2023-10-07 14:24 | CON.CAR ---
Addendum entered and electronically signed by Mando Ambriz MD 10/07/23 15:58:
I saw and examined the patient.
The [employer]ION[employer]DEL's note was reviewed and I agree with the note.
Comment: 53-year-old female who presented to the emergency department from [facility] for evaluation of change in mental status. Cardiology was consulted for an abnormal troponin.
- Likely nonischemic myocardial injury 2/2 drug use
- ECG are unremarkable
- Unless having CP recommend outpatient stress test
- TTE pending
Original Note:
Consultation
Consultation Request
Date/Time Consultation Requested: 10/07/23 14:00
Date/Time Consultation Performed: 10/07/23 14:25
Requesting Provider: Dr. Izquierdo
Performing Provider: ADOLFO Albarran for Dr. Ambriz
Reason for Consultation: Abnormal troponin
Medical History
-
Chief Complaint: Change in mental status
History of Present Illness:
Gen Desouza is a 53-year-old female who presented to the emergency department from [facility] for evaluation of change in mental status. She was incarcerated 10/06/2023. After 4 to 6 hours of incarceration she began
becoming increasingly agitated. She was found to be striking her head against the wall. The facility attempted multiple sedating medications without success and she was brought to the emergency department for further evaluation and treatment. At
the time of this consultation she is unable to participate.Cardiology was consulted for an abnormal troponin.
Past Medical History
Past Medical History: Other (Unable to confirm past medical history)
Past Surgical History: Other (Unknown. Unable to obtain.)
Social History
Tobacco: Other (Unable)
Alcohol: Other (Unable)
Drug: Other (Unable)
Personal: Other (Unable)
Living: Snf
Employment: Other (Unable)
Family History
Family History: Unable to Obtain
Allergies / Home Medications
Allergy/AdvReac Type Severity Reaction Status Date / Time
No Known Allergies Allergy Unverified 10/07/23 03:01
Medication Instructions Recorded Confirmed Type
buprenorphine HCl 2 mg sublingual 2 mg sublingual DAILY 10/07/23 10/07/23 History
tablet
buprenorphine HCl 2 mg sublingual 4 mg sublingual DAILY 10/07/23 10/07/23 History
tablet
buprenorphine HCl 8 mg sublingual 8 mg sublingual DAILY 10/07/23 10/07/23 History
tablet
clonazepam 0.5 mg disintegrating 0.5 mg PO DAILY 10/07/23 10/07/23 History
tablet
clonazepam 1 mg tablet 1 mg PO BID 10/07/23 10/07/23 History
clonazepam 2 mg disintegrating 2 mg PO BID 10/07/23 10/07/23 History
tablet
clonidine HCl 0.1 mg tablet 0.1 mg PO BID 10/07/23 10/07/23 History
clonidine HCl 0.1 mg tablet 0.1 mg PO TID 10/07/23 10/07/23 History
diphenhydramine HCl 50 mg/mL 50 mg IM ONCE 10/07/23 10/07/23 History
injection syringe
folic acid 1 mg tablet 1 mg PO DAILY 10/07/23 10/07/23 History
haloperidol lactate 5 mg/mL 5 mg ONCE 10/07/23 10/07/23 History
injection syringe
loperamide 2 mg tablet 2 mg PO TID PRN DIARRHEA 10/07/23 10/07/23 History
lorazepam 2 mg tablet 2 mg PO ONCE 10/07/23 10/07/23 History
magnesium oxide 400 mg PO DAILY 10/07/23 10/07/23 History
multivitamin 1 tab PO DAILY 10/07/23 10/07/23 History
ondansetron 4 mg disintegrating 4 mg PO Q8H PRN N/V 10/07/23 10/07/23 History
tablet
thiamine HCl (vitamin B1) 100 mg 100 mg PO DAILY 10/07/23 10/07/23 History
tablet (Vitamin B-1)
Review of Systems
-
Unable to obtain full review of systems at this time due to: Patient Non Verbal
Physical Exam
Vital Signs
Temp Pulse Resp BP Pulse Ox
98.6 F 70 12 80/59 98
10/07/23 11:59 10/07/23 13:40 10/07/23 13:40 10/07/23 13:40 10/07/23 13:40
Lab Results
10/07/23 02:39
10/07/23 13:00
Troponin I Cancelled 10/07/23 18:47
Physical Exam
General: Well Developed, Well Nourished, No Apparent Distress and Comfortable
HEENT: Anicteric and Moist Mucous Membranes
Respiratory: Clear and Non Labored Respirations
Cardiac: S1/S2 and Regular Rhythm; Negative Peripheral Edema
Breast: Deferred by me
GI: Soft, Non Tender, Non Distended and Normal Bowel Sounds
Rectal: Deferred by Provider
Genito-urinary: No Costovertebral Tender
Musculoskeletal: No Clubbing, No Cyanosis and No Edema
Skin: Warm, Dry and Other (Bruising to bilateral knees)
Neuro: Other (Lethargic)
Hematologic/Lymphatic: No Lymphadenopathy
Psych: Calm
Impression / Plan
-
Abnormal troponin, likely nonischemic myocardial injury
-Lethargic, no complaints of chest pain this hospitalization
-Trend troponin to peak, currently 3.070
-Echocardiogram
Altered mental status, per primary
Methamphetamine/amphetamine use, UDS positive
Witness head trauma, Neurology following
Data Reviewed
-
EKG: Report Reviewed by me (Sinus rhythm with sinus arrhythmia, rate 95)
CT Scan: Report Reviewed by me (Head: The posterior fossa structures are normal. The corea-white differentiation is preserved. The ventricles are normal in size. No bleed, mass effect or midline shift is seen. There is no skull fracture.)
Labs: Labs Reviewed by me
[2023-10-07 14:51] LABS: Blood Urea Nitrogen 19 mg/dl (7-17); Calcium 9.3 mg/dl (8.4-10.2); Carbon Dioxide 27 mmol/L (22-30); Chloride 99 mmol/L (98-107); Estimated Creatinine Clearance 84 ml/min; Glucose 147 mg/dl (70-99); Potassium 3.7 mmol/L (3.5-5.1); Sodium 136 mmol/L (135-145); eGFR > 60.00
--- NOTE | 2023-10-07 14:58 | PTCARENOTE ---
echo completed at bedside.
[2023-10-07] MEDS: 0.45% NACL with KCL 20 MEQ 1000 IV (15:43)
--- NOTE | 2023-10-07 16:34 | PTCARENOTE ---
Systems reviewed. Pt speech garbled but will follow simple commands to squeeze hands and wiggle toes bilaterally and then falls back to sleep. No other changes.
--- NOTE | 2023-10-07 17:19 | PTCARENOTE ---
guard from correctional facility here to bring belongings and release pt from custody.
[2023-10-07] MEDS: LOVENOX 40 MG SC (17:44)
[2023-10-07 18:00] LABS: Glucose - Point of Care 78 mg/dl (70-99)
--- NOTE | 2023-10-07 20:00 | PTCARENOTE ---
Received pt resting in bed, drowsy, oriented to self and time. Arouses to verbal. Able to follow commands and have short, simple conversations but remains restless at times. Unsure of recent events and why she is here. Speech garbled, slow. Pupils
3mm sluggish. Wrist restraints in place for safety. SR on tele, HR 70s. BP 120s/80s. Weak DPs. Afebrile. No edema. On 2L NC, lungs CTA. Spo2 98%. + bowel sounds, NPO. Springer draining yellow urine. Scattered bruising throughout arms and forehead R >
L. Precedex gtt continues and 1/2NS 20KCl @ 100ml/hr as ordered. 1:1 maintained. Pt. repositioning self in bed. Monitoring
[2023-10-08] VITALS (22 sets, daily range): BP systolic 97–168; BP diastolic 70–115; BMI 24.8
[2023-10-08 00:02] LABS: Glucose - Point of Care 95 mg/dl (70-99)
--- NOTE | 2023-10-08 00:23 | PTCARENOTE ---
Pt sleeping calmly but restless at times. Attempted to get OOB saying 'I have to go to the bathroom' with clear speech. Reminded that she has a catheter and pt. went back to sleep.
[2023-10-08] MEDS: 0.45% NACL with KCL 20 MEQ 1000 IV (00:58)
--- NOTE | 2023-10-08 04:31 | PTCARENOTE ---
Trialed precedex gtt off but within 45 minutes, pt restless, sitting up, trying to get OOB. Gtt placed back on at 0.2mcg. Was bathed with CHG, blood work drawn. Pt. able to verbalize she needed water and was able to take sips without problem.
[2023-10-08 04:58] LABS: % Basophils 0.2 % (0-2); % Eosinophils 0.8 % (0-6); % Immature Granulocytes 0.2 % (0-0.5); % Lymphocytes 20.7 % (20.5-51.1); % Monocytes 6.5 % (1.7-9.3); % Neutrophils 71.6 % (42.2-75.2); Absolute Eosinophils 0.1 10^3/uL (0-0.7); Absolute Lymphocytes 1.8 10^3/uL (1.2-3.4); Absolute Monocytes 0.6 10^3/uL (0.1-0.6); Absolute Neutrophils 6.3 10^3/uL (1.4-6.5); Hematocrit 39.2 % (37.0-47.0); Hemoglobin 13.6 g/dL (12.0-16.0); Mean Corp Hgb Conc. 34.7 g/dL (33.0-37.0); Mean Corpuscular Hgb 28.7 pg (27.0-31.0); Mean Corpuscular Volume 82.7 fL (81.0-99.0); Mean Platelet Volume 9.6 fL (7.4-10.4); Nucleated Red Blood Cells % 0 %; Platelet Count 337 10^3/uL (130-400); Red Blood Cell Count 4.74 10^6/uL (4.20-5.40); Red Cell Dist. Width 12.3 % (11.5-14.5); White Blood Cell Count 8.8 10^3/uL (4.8-10.8)
[2023-10-08 05:17] LABS: ALT (SGPT) 38 U/L (0-35); AST (SGOT) 97 U/L (14-36); Albumin 4.3 g/dl (3.5-5.0); Alkaline Phosphatase 139 U/L (38-126); Blood Urea Nitrogen 14 mg/dl (7-17); Calcium 9.2 mg/dl (8.4-10.2); Carbon Dioxide 22 mmol/L (22-30); Chloride 104 mmol/L (98-107); Estimated Creatinine Clearance 84 ml/min; Glucose 89 mg/dl (70-99); Magnesium 2.2 mg/dl (1.6-2.3); Potassium 4.2 mmol/L (3.5-5.1); Sodium 134 mmol/L (135-145); Total Bilirubin 2.1 mg/dl (0.2-1.3); Total Protein 7.9 g/dl (6.3-8.2); eGFR > 60.00
[2023-10-08] MEDS: PROTONIX IV 40 MG IV (07:29)
[2023-10-08] MEDS: NSS (PRESERVATIVE FREE) 10 ML IV (07:30)
--- NOTE | 2023-10-08 08:11 | PTCARENOTE ---
Rec'd pt at 0700 on 1:1 observation. Precedex gtts at 0.2mcg/kg/hr. Sleeping quietly in bed, awakens to verbal stimuli. Monitor SR 80-90's. Lungs CTA, pox 98% RA. +BS, abd soft/nt. Springer draining yellow urine. Calm/quiet environment maintained.
--- NOTE | 2023-10-08 09:10 | W.PN.CD ---
Today's Communication / Plan
-
She denies current or ever having CP, troponin peaked, likely nonischemic myocardial injury in setting of drug use
Outpatient stress test when able
We will sign off, please call back with further questions/concerns.
Impression / Plan
-
Abnormal troponin, likely nonischemic myocardial injury --> TTE below
-She denies current or ever having CP
-troponin peaked, no CP, outpatient stress test, recommended abstinence from drugs
-Echocardiogram below
Altered mental status, per primary
Methamphetamine/amphetamine use, UDS positive
Witness head trauma, Neurology following
TTE: �CONCLUSIONS
�Normal left ventricular size and wall thickness with low normal systolic
�function.
�No regional wall motion abnormalities are seen.
�LV ejection fraction is 50-55% by visual assessment. �
�Normal diastolic function.
�Normal right ventricular size and function.
�No significant valvular disease.
�Mild tricuspid regurgitation.
�Estimated pulmonary artery pressure of 21 mmHg, assuming a right atrial
�pressure of 3 mmHg.
�No prior study for comparison.
�
Physical Exam
Vital Signs/Labs
Vital Signs
Temp Pulse Resp BP Pulse Ox
99.6 F 80 18 141/91 97
10/08/23 07:39 10/08/23 08:00 10/08/23 08:00 10/08/23 08:00 10/08/23 08:00
10/07/23 10/08/23 10/09/23
06:59 06:59 06:59
Actual Weight 172 lb 2.896 oz 163 lb 2.273 oz
10/08/23 04:27
10/08/23 04:27
PT 13.3 Sec (11.4-14.6) 10/07/23 04:05
INR 1.01 10/07/23 04:05
APTT 20.1 Sec (23.4-35.0) L 10/07/23 04:05
Magnesium 2.2 mg/dl (1.6-2.3) 10/08/23 04:27
LAB Results
10/07/23 10/07/23 10/07/23
10:53 11:32 12:47
Troponin I Cancelled 3.070 H* Cancelled
10/07/23 10/07/23 10/07/23
17:09 18:47 23:10
Troponin I 2.700 H* Cancelled 3.510 H* D
10/08/23
04:27
Troponin I 3.290 H*
Physical Exam
Constitutional: Other (Uncomfortable appearing with back pain )
EENT: Anicteric
Cardiovascular: Rhythm & rate is regular (tachycardic ) and Systolic murmur absent
Respiratory: Respiratory effort normal and Lungs clear to auscul.
GI: Soft
Neuro/Psych: Alert and Oriented
Data Reviewed
-
Date of Service: October 08, 2023
EKG: Tracing Personally Visualized and interpreted
Echo: Tracing Personally Visualized and interpreted
Labs: Labs Reviewed by me
--- NOTE | 2023-10-08 09:33 | W.PN.INTV ---
Today's Communication / Plan
Recommendations
Continue Precedex, wean off as able
As needed Haldol and Ativan
One-to-one observation
Maintenance IV fluids
Daily electrolytes
Ceftriaxone for UTI, favor short course.
Suggest an eventual psychiatry evaluation.
Assessment
-
Agitated delirium: Toxic metabolic encephalopathy
Likely methamphetamine toxicity
UDS positive for amphetamines and methamphetamines
Positive for fentanyl as well
Positive for benzos (patient received in the emergency room)
Alcohol negative
Positive buprenorphine
Facial trauma: Self-inflicted
CT chest with no acute abnormality
Anion gap metabolic acidosis-likely due to agitation
CT abdomen pelvis/chest 10/07/2023: Lungs are mostly clear. Abdomen pelvis without acute abnormality
Leukocytosis: Possibly stress reaction-patient afebrile
Assessment and plan:
Patient improved this morning
Mental status is slowly better. Less combative.
Drowsy due to sedatives.
-
No significant oxygen supplementation
Protecting airway, coughing on demand.
-
Continuous Precedex drip-hopefully can wean off
Continue benzodiazepines as needed
Continue Haldol as needed
Continue to monitor QT prolongation
-
N.p.o. for now
Maintenance IV fluids
Hopefully can advance diet later today
Monitor daily electrolytes
-
Suggest psychiatry evaluation once able to cooperate
Continue one-to-one observation for now
-
Continue hemodynamic monitoring.
No evidence for arrhythmia so far.
-
Follow leukocytosis, urinalysis is abnormal.
Unclear if is contaminant
Urine culture negative
Ceftriaxone started-favor a very short course of antibiotics is only 3 days.
-
DVT prophylaxis with Lovenox
-
Hopefully pressors can be weaned off.
If drip is weaned off then transfer to [facility]. At that time critical care team will sign off.
Subjective Dataa
Subjective Data
Date of Service:
Date of Service: October 08, 2023
Chief Complaint: [employer] Follow Up (Toxic metabolic encephalopathy-methamphetamine toxicity.)
Subjective:
This morning patient is calm.
Occasionally following commands
Currently sleeping slightly drowsy.
Moving 4 extremities
Review of Systems
General: Other (Difficult to obtain due to mental status.)
Objective Data
Data Reviewed
Vital Signs / I&O / Oxygen:
Vital Signs
Temp Pulse Resp BP Pulse Ox
99.6 F 80 18 141/91 97
10/08/23 07:39 10/08/23 08:00 10/08/23 08:00 10/08/23 08:00 10/08/23 08:00
Intake and Output
10/07/23 10/08/23 10/09/23
06:59 06:59 06:59
Intake Total 2987.3 / 3091.0 207.4 / 207.4
Output Total 1979 / 2099 230 / 230
Balance 1007.3 / 991.0 -22.6 / -22.6
SaO2 97
Nasal Cannula flow liters per 2
minute
Physical Exam
General: Respiratory Distress (n) and Comfortable
HEENT: Normocephalic
Cardiovascular: S1-S2 and Regular Rhythm
Respiratory: Clear and Non-Labored Respirations
GI: Soft and Non Distended
Neurology: Other (Drowsy but calm. Moving 4 extremities occasionally. Coughing intermittently.)
Skin: Warm and Cyanosis (n)
Labs/Micro/Reports
Lab Data
10/08/23 04:27
10/08/23 04:27
Microbiology
10/07/23 04:05 Urine Urine Culture - Final
NO GROWTH
[2023-10-08] MEDS: STERILE WATER FOR INJECTION 10 ML IV (10:33)
[2023-10-08] MEDS: ROCEPHIN 1000 MG IV (10:33)
[2023-10-08] MEDS: D5/0.45%NSS with KCL 20 MEQ 1000 IV (10:52)
--- NOTE | 2023-10-08 11:28 | PTCARENOTE ---
~1030 Precedex turned off. Pt sleeping when undisturbed. Awakens to verbal stimuli, pt states that she doesn't remember what happened. Voice quality soft and garbled, difficult to understand at times. 1:1 dc'd.
--- NOTE | 2023-10-08 12:21 | CON.MD ---
Consultation - Medical
-
patient seen chart reviewed. patient was brought her from [facility] as she had banged her head in the throes of agitation from meth intoxication. the patient was barely able to engage in an interview today. she was a rather poor historian as she kept
falling asleep. she did anwer a few questions but at times i could barely understand her. she was brought her from residential in a severely agitated state and required a number of medications to quiet her including zyprexa haldol benadryl and
midazolam. she was finally placed on precedex which was ok'ed this am. the agitation was thought due to meth intoxication. the patient has been abusing substances for many years. she says she uses meth and fentanyl on a daily basis via injection.
she has been to rehab twice and stayed sober once for six months which ended about two years ago. she denies any psychiatric hx of depression and anxiety and has never been treated for same. at some points in her life she was taking buprenorphine.
she denies that she had ever been suicidal. she denied sx which would suggest psychosis such as hallucinations, paranoia TOX + for buprenorphine fentanyl amphets meth bzp
past medical hx lately unknown. she denied ongoing medical problems to me but this is not felt to be reliable. cat scan cervical spine films no acute changes although degenerative changes in cervical spine. wbc on admit quite high due presumably
to excitation uti being rx. neuro recommending mri if mse does not improve qtc is nl. bp pulse not elevated generally mildly febrile. patient not complaining of abd cramping, diarrhea, pupils not dilated, no piloerection see above re tox
screen
fh not known
past psych denied
substance abuse see above which is what is known at this time. patient according to nsg also said she used cocaine
social resides with parents has three kids
mse sedated ..could not stay awake for more than a moment here and there. knows she is in hospital speech slurred and hard to understand could not really assess thought process but denies sx of psychosis and suicidality. mood is very sleepy
affect constricted aver intell insight judgment poor
dx multiple drug use disorder including but not limited to stimulants opiates possibly bzp's
recommendation continue to monitor mental status. hopefully this sedation from meds used for agitation will pass but will need to watch for withdrawal from opiates which may ensue although not apparent at this moment. psych will check in with her
tomorrow
[2023-10-08 12:22] LABS: Glucose - Point of Care 90 mg/dl (70-99)
--- NOTE | 2023-10-08 13:23 | W.PN.HOSP.TC ---
Today's Communication/Plan
-
Monitor vital signs and see plan
Mental status slowly getting better
Continue to be on Precedex, Wean as tolerated
Cardiology leaning towards stress test outpatient
Ativan, Haldol as needed
Assessment / Plan
Assessment / Plan
General: No acute distress, sedated, in restraints
HEENT: Other (Poor dentition.� Evidence of recent bleeding from the nose and mouth.� No active bleeding.)
Respiratory: Clear; No Wheezes, Rales or Rhonchi
Cardiac: S1/S2 and Tachycardia; No Murmur
GI: Soft, Non Tender, Non Distended and Normal Bowel Sounds
Musculoskeletal: No Clubbing, No Cyanosis and No Edema
Neuro:sedated
Altered Mental Status / Agitation
Acute TME
Anion Gap Metabolic Acidosis
Leukocytosis
now in ICU; on precedex
�- UDS positive for amphetamines / methamphetamines (as well as BZDs and buprenorphine which she was receiving at the long term).
�- Presentation / exam on admission consistent with methamphetamine toxicity.
cw restraints
�- BP control with hydralazine.� Avoid beta-blockers acutely.
�- Business Services Officer following
�- Psychiatry following
�- Follow for clinical improvement. 10/07 patient also reported that she was taking cocaine. Last use was 2 days ago.
Elevated troponin, could be from non ischemic myocardial injury
echo EF 50 to 55%, normal diastolic function
Cardiology leaning towards outpatient stress test
Mild LFT elevation
Monitor
Mild hyponatremia
monitor
Prediabetes
A1c 6
Monitor
Suspect urinary tract infection
Urine culture pending
Continue ceftriaxone for now
Head Trauma - Witnessed
�- Patient with hematoma over the R > L frontal areas.
�- Bleeding from mouth / nose on arrival - no longer active.
�- See ED record regarding circumstances of initial presentation.
�- Imaging done here in the ED is without any evidence of intracranial bleeding, factures or other significant trauma.
�- Agitation / altered mental status preceded (and was the cause of) the self-inflicted trauma.
�- Monitor for any evident changes in neurologic status.
�-Neurology following
�-CT cervical spine consistent with degenerative changes, no signs of fracture
CT chest/abdomen/pelvis, no radiopaque foreign body identified. 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 Post recent right gluteal intramuscular injection
Hypertension
�- Likely in large part secondary to amphetamine toxicity / agitation.
�- Follow for improvement with adequate sedation.
�- IV hydralazine PRN for very high BPs.
DVT Prophylaxis:� SCDs;lovenox
Code Status:� Full
I spent a total of 53 minutes with the patient or on the floor. More than 50% of this time involved counseling and coordination of care.
Anticipated Discharge: 24 - 48 hours
Subjective/Interval History
-
Date of Service: October 08, 2023
denies nausea
Objective Data
-
Labs:
Laboratory Results
10/08/23
04:27
WBC 8.8
Hgb 13.6
Hct 39.2
Plt Count 337
Sodium 134 L
Potassium 4.2
Chloride 104
Carbon Dioxide 22
BUN 14
Creatinine 0.8
Glucose 89
Calcium 9.2
Total Bilirubin 2.1 H
AST 97 H
ALT 38 H
Alkaline Phosphatase 139 H
Vital Signs:
Vital Signs
Temp Pulse Resp BP Pulse Ox
99.7 F 112 20 138/93 96
10/08/23 12:13 10/08/23 13:00 10/08/23 13:00 10/08/23 13:00 10/08/23 13:00
I&O
10/07/23 10/08/23 10/09/23
06:59 06:59 06:59
Intake Total 2987.3 / 3091.0 651.0 / 651.0
Output Total 1979 / 2099 230 / 230
Balance 1007.3 / 991.0 421.0 / 421.0
--- NOTE | 2023-10-08 14:24 | W.PN.UPDATE ---
Update Note
Progress Note Update
Mental status improved
One-to-one has been discontinued
Hemodynamically stable
Will transfer to telemetry
Critical care team will sign off
[2023-10-08] MEDS: LOVENOX 40 MG SC (18:15)
[2023-10-08 18:23] LABS: Glucose - Point of Care 94 mg/dl (70-99)
[2023-10-08] MEDS: ATIVAN 2 MG IV (18:59)
--- NOTE | 2023-10-08 19:22 | PTCARENOTE ---
received patient. oriented x3, drowsy but arousable to voice. COWS 11, PRN ativan given. on RA, denies SOB. ST on monitor. perkins in place. IVF infusing. repositions self.
report called to 3 MAURICE Schmitt. Pt going into room 320-1. care ongoing.
[2023-10-09 00:19] LABS: Glucose - Point of Care 79 mg/dl (70-99)
[2023-10-09 03:36] VITALS: BP 149/102
[2023-10-09 05:08] VITALS: BP 155/92
[2023-10-09 06:00] VITALS: BMI 24.5
[2023-10-09 06:12] LABS: Glucose - Point of Care 92 mg/dl (70-99)
[2023-10-09 07:30] LABS: % Basophils 0.4 % (0-2); % Eosinophils 0.6 % (0-6); % Immature Granulocytes 0.4 % (0-0.5); % Lymphocytes 22.1 % (20.5-51.1); % Neutrophils 69.5 % (42.2-75.2); Absolute Eosinophils 0.1 10^3/uL (0-0.7); Absolute Lymphocytes 2.3 10^3/uL (1.2-3.4); Absolute Monocytes 0.7 10^3/uL (0.1-0.6); Absolute Neutrophils 7.3 10^3/uL (1.4-6.5); Hematocrit 44.8 % (37.0-47.0); Hemoglobin 15.2 g/dL (12.0-16.0); Mean Corp Hgb Conc. 33.9 g/dL (33.0-37.0); Mean Corpuscular Hgb 28.1 pg (27.0-31.0); Mean Platelet Volume 9.9 fL (7.4-10.4); Nucleated Red Blood Cells % 0 %; Platelet Count 430 10^3/uL (130-400); Red Cell Dist. Width 12.3 % (11.5-14.5); White Blood Cell Count 10.5 10^3/uL (4.8-10.8)
[2023-10-09 07:42] VITALS: BP 152/104
[2023-10-09 08:01] LABS: ALT (SGPT) 34 U/L (0-35); AST (SGOT) 56 U/L (14-36); Albumin 4.5 g/dl (3.5-5.0); Alkaline Phosphatase 143 U/L (38-126); Blood Urea Nitrogen 14 mg/dl (7-17); Calcium 9.7 mg/dl (8.4-10.2); Carbon Dioxide 17 mmol/L (22-30); Chloride 99 mmol/L (98-107); Estimated Creatinine Clearance 96 ml/min; Glucose 82 mg/dl (70-99); Sodium 132 mmol/L (135-145); Total Bilirubin 1.7 mg/dl (0.2-1.3); Total Protein 8.3 g/dl (6.3-8.2); eGFR > 60.00
[2023-10-09] MEDS: PROTONIX IV 40 MG IV (09:06)
[2023-10-09] MEDS: NSS (PRESERVATIVE FREE) 10 ML IV (09:07)
[2023-10-09] MEDS: STERILE WATER FOR INJECTION 10 ML IV (09:08)
[2023-10-09] MEDS: ROCEPHIN 1000 MG IV (09:08)
--- NOTE | 2023-10-09 10:41 | W.PN.UPDATE ---
Update Note
Progress Note Update
Patient is rather drowsy this AM but responds with one worded answers but than drops off to sleep. She is not presently agitated and is oriented uin all spheres. Further cognitive testing could not be done.
For now I would continue the prn Ativan/Haldol if agitated. her cognitive status should continue to improve.
We will continue F/U.
--- NOTE | 2023-10-09 11:49 | W.PN.HOSP.TC ---
Addendum entered and electronically signed by Gurdeep Shrestha MD 10/09/23 17:45:
Time of discharge 37-minutes
Original Note:
Today's Communication/Plan
-
Monitor vital signs and see plan
Now appears to be going into withdrawal, add clonidine
COWS protocol
Psychiatry following
DC Perkins in next 24hrs; RN aware
Assessment / Plan
Assessment / Plan
General: No acute distress,lethargic
HEENT: anicteric,pink conjuctivae
Respiratory: Clear; No Wheezes, Rales or Rhonchi
Cardiac: S1/S2 and Tachycardia; No Murmur
GI: Soft, Non Tender, Non Distended and Normal Bowel Sounds
: perkins
Musculoskeletal: No Clubbing, No Cyanosis and No Edema
Neuro:AAOx2
Altered Mental Status / Agitation
Acute TME
Anion Gap Metabolic Acidosis
Leukocytosis
Was in ICU on Precedex, now off Precedex
�- UDS positive for amphetamines / methamphetamines (as well as BZDs and buprenorphine which she was receiving at the long-term).
�- Presentation / exam on admission consistent with methamphetamine toxicity.
�- BP control with hydralazine.� Avoid beta-blockers acutely.
�- Psychiatry following
�- Follow for clinical improvement. 10/07 patient also reported that she was taking cocaine. Last use was 2 days ago.
Now monitor for withdrawal, appears to be going in withdrawal. Monitor. COWS protocol. Clonidine
Elevated troponin, could be from non ischemic myocardial injury
echo EF 50 to 55%, normal diastolic function
Cardiology leaning towards outpatient stress test
Mild LFT elevation
Monitor
Mild hyponatremia
monitor
Prediabetes
A1c 6
Monitor
Suspect urinary tract infection
Urine culture no growth
finished CFTX
dc perkins in next 24hrs; and check bladder scan
Acute urinary retention likely secondary to drug use
Head Trauma - Witnessed
�- Patient with hematoma over the R > L frontal areas.
�- Bleeding from mouth / nose on arrival - no longer active.
�- See ED record regarding circumstances of initial presentation.
�- Imaging done here in the ED is without any evidence of intracranial bleeding, factures or other significant trauma.
�- Agitation / altered mental status preceded (and was the cause of) the self-inflicted trauma.
�- Monitor for any evident changes in neurologic status.
�-Neurology following
�-CT cervical spine consistent with degenerative changes, no signs of fracture
CT chest/abdomen/pelvis, no radiopaque foreign body identified. 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 Post recent right gluteal intramuscular injection
Hypertension
�- Likely in large part secondary to amphetamine toxicity / agitation.
�- Follow for improvement with adequate sedation.
�- IV hydralazine PRN for very high BPs.
DVT Prophylaxis:� SCDs;lovenox
Code Status:� Full
I spent a total of 52 minutes with the patient or on the floor. More than 50% of this time involved counseling and coordination of care.
Anticipated Discharge: > 48 hours
Subjective/Interval History
-
Date of Service: October 09, 2023
Lethargic but arousable
Objective Data
-
Labs:
Laboratory Results
10/09/23
06:06
WBC 10.5
Hgb 15.2
Hct 44.8
Plt Count 430 H D
Sodium 132 L
Potassium 4.0
Chloride 99
Carbon Dioxide 17 L
BUN 14
Creatinine 0.7
Glucose 82
Calcium 9.7
Total Bilirubin 1.7 H
AST 56 H
ALT 34
Alkaline Phosphatase 143 H
Vital Signs:
Vital Signs
Temp Pulse Resp BP Pulse Ox
98.2 F 107 22 152/104 99
10/09/23 07:42 10/09/23 07:42 10/09/23 07:42 10/09/23 07:42 10/09/23 07:42
I&O
10/08/23 10/09/23 10/10/23
06:59 06:59 06:59
Intake Total 2987.3 / 3091.0 1371.0 / 1371.0
Output Total 1979 2505 / 2505
Balance 1007.3 / 991.0 -1134.0 / -1134.0
[2023-10-09 11:55] VITALS: BP 120/65
[2023-10-09] MEDS: CATAPRES 0.100000000000000006 MG PO (12:32)
[2023-10-09 12:36] LABS: Glucose - Point of Care 86 mg/dl (70-99)
[2023-10-09] MEDS: ATIVAN 2 MG IV (12:37)
[2023-10-09] MEDS: NSS (PRESERVATIVE FREE) 1 ML IV (12:38)
[2023-10-09 15:30] VITALS: BP 135/91
--- NOTE | 2023-10-09 17:33 | W.PN.UPDATE ---
Update Note
Progress Note Update
Notified by RN that patient wants to leave AGAINST MEDICAL ADVICE. Discussed risks including worsening withdrawal symptoms, currently still has Springer catheter which will be taken out (has not been voiding trial yet), worsening mentation etc. but
patient still decided to leave AGAINST MEDICAL ADVICE. AMA form signed by patient, me and RN.
--- NOTE | 2023-10-09 17:36 | W.DCSUMMARY ---
Discharge Summary
Discharge Data
Date of Admission: 10/07/23
Date of Discharge: 10/09/23
-
Pending Results: No
Hospital Course
53-year-old female with past medical history of drug abuse came to the hospital from [facility] with acute agitation and confusion. Patient had self-inflicted trauma prior to the arrival so multiple CT scans were done. CT head did not show any
hemorrhage. CT cervical spine was consistent with degenerative changes. CT of the abdomen did show congenitally anomalous configuration of the right kidney with a mall rotation. Patient was initially admitted to ICU and was started on Precedex.
Patient was seen by neurology, psychiatry throughout hospitalization. Patient UDS was positive for amphetamines. Later on patient also reported that she used cocaine and fentanyl. Patient troponin was also elevated which was likely thought was
secondary to nonischemic myocardial injury. Echocardiogram was done which showed EF of 50 to 55% with normal diastolic function. Patient was seen by cardiology who recommended patient to get outpatient stress test. Patient also had urinary tract
infection for which she was treated with antibiotics. Patient also had acute urinary retention on admission where Springer catheter was placed in ICU. On 10/09/2023 patient was still actively withdrawing however still decided to leave AGAINST MEDICAL
ADVICE. All the risk associated with leaving AGAINST MEDICAL ADVICE was discussed with the patient however still she still chose to leave. Springer catheter and IV line was removed prior to her leaving the hospital. Patient was given instructions to
follow-up with all her physicians outpatient and to seek medical attention as soon as possible.
Discharge Plan
-
Patient Disposition: Against Medical Advice
Discharge Diagnosis/Procedures: Acute agitation likely secondary to methamphetamine use
Opioid use with abuse
Opiate withdrawal
Elevated troponin
Urinary tract infection
Prediabetes
Diet: Diabetic, Carb Controlled
Activity: As tolerated
Driving Restrictions: Not until seen by your Dr
Referrals:
Mando Ambriz MD [Active] -
NONE,* [Family Provider] - in less than 1 week
Prescriptions:
No Action
multivitamin Tablet
1 tab PO DAILY
clonidine HCl 0.1 mg Tablet
0.1 mg PO BID
Rx Instructions:
taper
clonidine HCl 0.1 mg Tablet
0.1 mg PO TID
Rx Instructions:
taper
clonazepam 1 mg Tablet
1 mg PO BID
Rx Instructions:
taper
loperamide [Anti-Diarrhea] 2 mg Tablet
2 mg PO TID PRN (Reason: DIARRHEA)
thiamine HCl (vitamin B1) [Vitamin B-1] 100 mg Tablet
100 mg PO DAILY
folic acid 1 mg Tablet
1 mg PO DAILY
ondansetron 4 mg Tablet,Disintegrating
4 mg PO Q8H PRN (Reason: N/V)
Rx Instructions:
PO OR IM
buprenorphine HCl 2 mg Tablet, Sublingual
2 mg SUBLINGUAL DAILY
Rx Instructions:
taper
buprenorphine HCl 2 mg Tablet, Sublingual
4 mg SUBLINGUAL DAILY
Rx Instructions:
taper
buprenorphine HCl 8 mg Tablet, Sublingual
8 mg SUBLINGUAL DAILY
Rx Instructions:
taper
clonazepam 0.5 mg Tablet,Disintegrating
0.5 mg PO DAILY
Rx Instructions:
taper
clonazepam 2 mg Tablet,Disintegrating
2 mg PO BID
Rx Instructions:
taper
magnesium oxide 400 mg magnesium Tablet
400 mg PO DAILY
lorazepam 2 mg Tablet
2 mg PO ONCE
diphenhydramine HCl [Benadryl] 50 mg/mL Syringe
50 mg IM ONCE
Haldol 5 mg/mL Syringe
5 mg ONCE
Discharge Orders:
Discharge Patient (As Directed); Ordered 10/09/23
Ordered By: Gurdeep Shrestha
Discharge Date and Time
Discharge Date/Time: 10/09/23 17:40
--- NOTE | 2023-10-09 18:00 | PTCARENOTE ---
RN was in room to give medication that was due. Pt suddenly was upset and said' I want to leave AMA'. RN discussed with pt to see what more can be done. Dr. Shrestha was notified and came to floor. AMA formed signed RN witness. Racheal along with two IV
sites removed.
== END 2023-10-09 17:40 | disposition left against medical advice (07) | DRG 689 ==
LOC: 3 WEST ACU 05:39
PROVIDERS: Nurse Practitioner Primary Care; ADMITTING PHYSICIAN Hospitalist; ATTENDING PHYSICIAN Internal Medicine; CONSULT PHYSICIAN Internal Medicine Cardiovascular Disease; CONSULT PHYSICIAN Psychiatry & Neurology Neurology; CONSULT PHYSICIAN Psychiatry & Neurology Psychiatry; EMERGENCY PHYSICIAN Student in an Organized Health Care Education/Training Program; OTHER PHYSICIAN Internal Medicine Critical Care Medicine
PROC: 0T9B70Z Drainage of Bladder with Drainage Device, Via Natural or Artificial Opening (ICD-10-PCS; 2023-10-09)
DX: N39.0 Urinary tract infection, site not specified (principal); G92.8 Other toxic encephalopathy; F11.23 Opioid dependence with withdrawal; E87.1 Hypo-osmolality and hyponatremia; I5A Non-ischemic myocardial injury (non-traumatic); E87.20 Acidosis, unspecified; S09.90XA Unspecified injury of head, initial encounter; R45.1 Restlessness and agitation; S00.83XA Contusion of other part of head, initial encounter; X83.8XXA Intentional self-harm by other specified means, initial encounter; R73.03 Prediabetes; D72.829 Elevated white blood cell count, unspecified; I10 Essential (primary) hypertension; Y93.9 Activity, unspecified; Y92.149 Unspecified place in prison as the place of occurrence of the external cause; M50.30 Other cervical disc degeneration, unspecified cervical region; F15.10 Other stimulant abuse, uncomplicated; M43.12 Spondylolisthesis, cervical region; M47.819 Spondylosis without myelopathy or radiculopathy, site unspecified; R04.0 Epistaxis; Z78.1 Physical restraint status
CPT/HCPCS: 51701; 70450; 71250; 72125; 74176; 80048; 80053; 80143; 80179; 80306; 80307; 81003; 81015; 82077; 82550; 82607; 82728; 82746; 82962; 83036; 83605; 83735; 84100; 84443; 84484; 84703; 85025; 85610; 85652; 85730; 87070; 87086; 93005; 93306; 96372; 99291; J2358; J3480

== ENCOUNTER 2023-10-09 21:18 | Emergency (ER) | payer SELFPAY ==
[2023-10-09 21:23] VITALS: BP 103/65
[2023-10-10 03:41] VITALS: BP 130/96
--- NOTE | 2023-10-10 03:58 | ED.GENMED ---
History of Present Illness
General
Chief Complaint: Withdrawal Symptoms
Source: patient
Time Seen by Provider: 10/10/23 03:32
Nursing documentation reviewed up to this point in time: agreed with
Travel History
Have you had any contact with someone who has COVID-19?: No
Do you have any symptoms of coronavirus? Fever > 100 degrees, chills, cough, shortness of breath, sore throat, loss of taste or smell, muscle aches, or headache?: No
History of Present Illness
History of Present Illness:
53-year-old female presents for evaluation. She was admitted last week and left AGAINST MEDICAL ADVICE this evening. She cannot get a ride home so she came to the emergency department. She tried to get a ride home from some of the people sitting
in the waiting room but was unsuccessful. She was told to check into the hospital again. Patient was sleeping in the waiting room until called back to the room. She did return to sleep. After waking her, patient stated that she 'wanted something
for withdrawal '. I did advise her that we could offer her help but her drug and alcohol treatment facility. She stated that she did not want to go to facility at this point. Patient denies chest pain or shortness of breath.
Review of Systems
Review of Systems
Allergies reviewed?: Yes
All Other Systems: Not applicable
Constitutional: Reports no symptoms
EENT: Reports no symptoms
Respiratory: Reports no symptoms
Cardiac: Reports no symptoms
ABD/GI: Reports no symptoms
: Reports no symptoms
Musculoskeletal: Reports no symptoms
Skin: Reports no symptoms
Neurological: Reports no symptoms
Endocrine: Reports no symptoms
Hematologic/Lymphatic: Reports no symptoms
Psychiatric: Reports anxiety
Phy Exam
General Physical Exam
General Presentation: well appearing and no apparent distress
General Skin: warm and dry
General Habitus: normal
General Mental: alert
General Hydration: appears well hydrated
ENT Exam
ENT Exam: EOMI, pharynx normal, neck supple and normocephalic
Eye Exam
Eye Exam: PERRL, cornea clear and conjunctiva normal
Cardiovascular Exam
Cardiovascular Exam: regular rate/rhythm, no edema, no murmur and normal peripheral pulses
Pulmonary Exam
Pulmonary Exam: lungs clear, no respiratory distress, no rales, no crackles, no rhonchi, no stridor, no wheezing and no cough
Gastrointestinal Exam
Gastrointestinal Exam: normal bowel sounds, non tender, soft, no organomegaly, no pulsatile mass and non distended
Neurological Exam
Neurological Exam: alert, oriented x3, no motor deficits and speech normal
Musculoskeletal Exam
Musculoskeletal Exam: full ROM and no edema
Skin Exam
Skin Exam: normal color, warm/dry, no rash and no petechia
Psychiatric Exam
Psychiatric Exam: normal mood/affect
Course
Orders/Labs/Results
Orders:
Orders
10/10/23 04:46
Case Management Consult ONCE
Case Management Consult: Discharge Planning
Vital Signs
Initial and Last Documented VS:
Initial Vital Signs
Temp Pulse Resp BP
96 F L 131 20 103/65
10/09/23 21:23 10/09/23 21:23 10/09/23 21:23 10/09/23 21:23
Last Documented Vital Signs
Temp Pulse Resp BP Pulse Ox
98.8 F 88 21 130/81 96
10/10/23 03:41 10/10/23 08:30 10/10/23 08:30 10/10/23 08:00 10/10/23 08:30
*Critical Care Note
Total Time (30-74mins, 75-104mins- exclusive of procedures): Not Applicable
ED Attending Note
-
Portions of this chart may have been created with voice recognition software.� Occasional wrong word or��sound alike� substitutions may have occurred due to the inherent limitations of voice recognition software.
Discharge Plan
Departure
Patient Disposition: Other
Date of Disposition: 10/10/23
Time of Disposition: 04:47
Discharge Problem:
Drug abuse
Prescriptions:
No Action
multivitamin Tablet
1 tab PO DAILY
clonidine HCl 0.1 mg Tablet
0.1 mg PO BID
Rx Instructions:
taper
clonidine HCl 0.1 mg Tablet
0.1 mg PO TID
Rx Instructions:
taper
clonazepam 1 mg Tablet
1 mg PO BID
Rx Instructions:
taper
loperamide [Anti-Diarrhea] 2 mg Tablet
2 mg PO TID PRN (Reason: DIARRHEA)
thiamine HCl (vitamin B1) [Vitamin B-1] 100 mg Tablet
100 mg PO DAILY
folic acid 1 mg Tablet
1 mg PO DAILY
ondansetron 4 mg Tablet,Disintegrating
4 mg PO Q8H PRN (Reason: N/V)
Rx Instructions:
PO OR IM
buprenorphine HCl 2 mg Tablet, Sublingual
2 mg SUBLINGUAL DAILY
Rx Instructions:
taper
buprenorphine HCl 2 mg Tablet, Sublingual
4 mg SUBLINGUAL DAILY
Rx Instructions:
taper
buprenorphine HCl 8 mg Tablet, Sublingual
8 mg SUBLINGUAL DAILY
Rx Instructions:
taper
clonazepam 0.5 mg Tablet,Disintegrating
0.5 mg PO DAILY
Rx Instructions:
taper
clonazepam 2 mg Tablet,Disintegrating
2 mg PO BID
Rx Instructions:
taper
magnesium oxide 400 mg magnesium Tablet
400 mg PO DAILY
lorazepam 2 mg Tablet
2 mg PO ONCE
diphenhydramine HCl [Benadryl] 50 mg/mL Syringe
50 mg IM ONCE
Haldol 5 mg/mL Syringe
5 mg ONCE
Referrals:
UNKNOWN - PT DOES,NOT KNOW [Family Provider] -
Interventions
Interventions:
*Risk Screen - Suicide Last Done: 10/09/23 21:23
*General Assessment Last Done: 10/09/23 21:23
*Neglect/Abuse Screening Last Done: 10/09/23 21:23
ED- Fall Risk Assessment Last Done: 10/10/23 03:43
*ED COVID-19 Vaccine History Last Done: 10/10/23 03:42
*Nursing Disposition Last Done: 10/10/23 09:34
ED- Neurological Assessment Last Done: 10/10/23 03:43
ED-Psychological Assessment Last Done: 10/10/23 03:43
Discharge Date and Time
Discharge Date/Time: 10/10/23 09:35
[2023-10-10 04:00] VITALS: BP 146/101
--- NOTE | 2023-10-10 04:00 | EDRN ---
Called [facility] [phone] - sergeant there states that when patient was admitted to the hospital here, she was released from [facility] custody and allowed to have her belongings back. Sergeant states patient has no listed next of kin, no listed address
on file with them.
[2023-10-10 05:00] VITALS: BP 133/81
[2023-10-10 06:00] VITALS: BP 122/95
[2023-10-10 07:00] VITALS: BP 140/89
[2023-10-10 08:00] VITALS: BP 130/81
--- NOTE | 2023-10-10 08:49 | CM ---
Addendum entered by Elena Modi RN 10/10/23 09:26:
[employer] provided transportation assistance via [employer] to the provided address
Original Note:
[employer] provided the following address for patient to be transported to via [employer]
[address]
[place] [id number]
== END 2023-10-10 09:35 | disposition other institution (70) ==
LOC: EMR 21:18
PROVIDERS: EMERGENCY PHYSICIAN Student in an Organized Health Care Education/Training Program
DX: F19.10 Other psychoactive substance abuse, uncomplicated (principal)
CPT/HCPCS: 99282

== ENCOUNTER → 2024-05-29 09:46 | Outpatient (REF) | payer OTHER, SELFPAY | LOC: WDC 09:46 | PROVIDERS: ATTENDING PHYSICIAN Nurse Practitioner | DX: N63.10 Unspecified lump in the right breast, unspecified quadrant (principal); N63.12 Unspecified lump in the right breast, upper inner quadrant | CPT/HCPCS: 76642; 77062; 77066 ==